=== PATIENT | male | born 1960 | race Caucasian/White ===

== ENCOUNTER 2017-07-03 06:07 | Emergency (ER) | payer OTHER ==
[~2017-07-03] VITALS: Ht 198.1 cm; Wt 96.3 kg
[2017-07-03 07:17] VITALS: BP 108/59
== END 2017-07-03 07:19 | disposition home or self-care (01) ==
LOC: M ED 06:07
DX: N35.9 Urethral stricture, unspecified (principal); Z91.013 Allergy to seafood; Z91.030 Bee allergy status